=== PATIENT | female | born 1950 | race Caucasian/White ===

== ENCOUNTER → 2017-03-29 | Outpatient (CLI) | payer MEDICARE ==
--- NOTE | 2017-03-29 16:53 | US ---
EXAMINATION TYPE: US carotid duplex BILAT DATE OF EXAM: 03/29/2017 4:25 PM COMPARISON: NONE CLINICAL HISTORY: R42 Dizziness and giddiness. Patient states feeling foggy EXAM MEASUREMENTS: RIGHT: Peak Systolic Velocity (PSV) cm/sec ----- Right CCA: 85.3 ----- Right ICA: 72.4 ----- Right ECA: 120.5 ICA/CCA ratio: 0.8 RIGHT: End Diastole cm/sec ----- Right CCA: 22.6 ----- Right ICA: 16.4 ----- Right ECA: 22.0 LEFT: Peak Systolic Velocity (PSV) cm/sec ----- Left CCA: 77.7 ----- Left ICA: 64.2 ----- Left ECA: 110.8 ICA/CCA ratio: 0.8 LEFT: End Diastole cm/sec ----- Left CCA: 22.7 ----- Left ICA: 18.8 ----- Left ECA: 15.0 VERTEBRALS (direction of flow): Right Vertebral: Antegrade Left Vertebral: Antegrade No elevated velocities, plaque or significant stenosis seen. No wall thickening visualized. IMPRESSION: No hemodynamically significant stenosis of either carotid system.
== END | disposition home or self-care (01) ==
LOC: RADUSWWP 15:52
PROVIDERS: ATTEND Family Medicine
DX: R42 Dizziness and giddiness (principal)
CPT/HCPCS: 93880

== ENCOUNTER → 2017-06-14 | Outpatient (CLI) | payer MEDICARE ==
--- NOTE | 2017-06-17 12:54 | MM ---
Reason for exam: screening (asymptomatic). Last mammogram was performed 1 year and 2 months ago. Physical Findings: A clinical breast exam by your physician is recommended on an annual basis and results should be correlated with mammographic findings. MG 3D Screening Mammo W/Cad Bilateral CC and MLO view(s) were taken. Prior study comparison: April 16, 2016, bilateral MG 3d screening mammo w/cad. September 14, 2014, mammogram, performed at [place]. October 29, 2012, mammogram, performed at [place]. There are scattered fibroglandular densities. Finding: There are typically benign vascular calcifications in both breasts. There is no discrete abnormality. ASSESSMENT: Benign, BI-RAD 2 RECOMMENDATION: Routine screening mammogram of both breasts in 1 year.
== END | disposition home or self-care (01) ==
LOC: RADMAMWWP 10:53
PROVIDERS: ATTEND Family Medicine
DX: Z12.31 Encounter for screening mammogram for malignant neoplasm of breast (principal)
CPT/HCPCS: 77063; G0202

== ENCOUNTER → 2018-07-23 | Outpatient (CLI) | payer MEDICARE ==
--- NOTE | 2018-07-24 14:50 | MM ---
Reason for exam: screening (asymptomatic). Last mammogram was performed 1 year and 1 month ago. History: Family history of breast cancer in daughter at age 49. Physical Findings: A clinical breast exam by your physician is recommended on an annual basis and results should be correlated with mammographic findings. MG 3D Screening Mammo W/Cad Bilateral CC and MLO view(s) were taken. Prior study comparison: June 14, 2017, bilateral MG 3d screening mammo w/cad. April 16, 2016, bilateral MG 3d screening mammo w/cad. There are scattered fibroglandular densities. No suspicious calcifications are seen. There is no discrete abnormality. No significant changes when compared with prior studies. ASSESSMENT: Negative, BI-RAD 1 RECOMMENDATION: Routine screening mammogram of both breasts in 1 year.
== END | disposition home or self-care (01) ==
LOC: RADMAMWWP 13:00
PROVIDERS: ATTEND Family Medicine
DX: Z12.31 Encounter for screening mammogram for malignant neoplasm of breast (principal)
CPT/HCPCS: 77063; 77067

== ENCOUNTER → 2018-12-26 | Outpatient (CLI) | payer MEDICARE, OTHER ==
--- NOTE | 2018-12-26 16:56 | US ---
EXAMINATION TYPE: US thyroid st tissue head/neck DATE OF EXAM: 12/26/2018 COMPARISON: 04/02/2016 CLINICAL HISTORY: 68-year-old female E04.1 THYROID NODULE. TECHNIQUE: Multiple sonographic images of the thyroid gland are obtained. FINDINGS: GLAND SIZE: Right Lobe: surgically absent Left Lobe: 4.0 x 1.0 x 2.7 cm Overall Parenchyma: heterogeneous Isthmus Thickness: 0.5 cm NODULES RIGHT: # of nodules measured on right: 0 LEFT: # of nodules measured on left: 0 ISTHMUS: # of nodules measured in the isthmus: 0 Bilateral neck scanned, no evidence of lymphadenopathy. IMPRESSION: Status post right thyroidectomy. The left lobe is heterogeneous but no discrete nodule is seen.
== END ==
LOC: RADUSWWP 15:38
PROVIDERS: ATTEND Family Medicine
DX: E89.0 Postprocedural hypothyroidism (principal); Z90.89 Acquired absence of other organs; Z98.890 Other specified postprocedural states
CPT/HCPCS: 76536

== ENCOUNTER → 2019-06-18 | Outpatient (CLI) | payer MEDICARE, OTHER ==
[2019-06-18 10:54] LABS: Basophils % (A) 1 %; Eosinophils # (A) 0.1 k/uL (0-0.7); Eosinophils % (A) 2 %; HCT 46.1 % (34.0-46.0); HGB 14.1 gm/dL (11.4-16.0); Lymphocytes # (A) 1.4 k/uL (1.0-4.8); Lymphocytes % (A) 31 %; MCH 26.8 pg (25.0-35.0); MCHC 30.7 g/dL (31.0-37.0); MCV 87.3 fL (80.0-100.0); Mean Platelet Volume 7.1; Monocytes # (A) 0.3 k/uL (0-1.0); Monocytes % (A) 6 %; Neutrophils # (A) 2.7 k/uL (1.3-7.7); Neutrophils % (A) 59 %; Platelet Count 162 k/uL (150-450); RBC 5.28 m/uL (3.80-5.40); RDW 14.1 % (11.5-15.5); WBC 4.6 k/uL (3.8-10.6)
[2019-06-18 13:36] LABS: Erythrocyte Sedimentation Rate 2 mm/hr (0-20)
[2019-06-18 16:34] LABS: C Reactive Protein <0.4 mg/dL (0.0-0.8); Cholesterol 173 mg/dL (0-200); Glucose 149 mg/dL (70-110)
== END | disposition home or self-care (01) ==
LOC: LABWHC1 10:06
PROVIDERS: ATTEND Ophthalmology
DX: E11.9 Type 2 diabetes mellitus without complications (principal); H49.12 Fourth [trochlear] nerve palsy, left eye
CPT/HCPCS: 36415; 80061; 82947; 83036; 84439; 84443; 84481; 85025; 85652; 86140

== ENCOUNTER → 2019-06-25 | Outpatient (CLI) | payer MEDICARE, OTHER ==
--- NOTE | 2019-06-25 12:36 | XR ---
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 FINDINGS: There is no focal air space opacity, pleural effusion, or pneumothorax seen. The cardiac silhouette size is within normal limits. Bilateral shoulder arthroplasties are present. There is thor acic spondylosis. The osseous structures are intact. IMPRESSION: No acute cardiopulmonary process.
== END | disposition home or self-care (01) ==
LOC: RADXRMAIN 09:36
PROVIDERS: ATTEND Nurse Practitioner Adult Health
DX: R76.11 Nonspecific reaction to tuberculin skin test without active tuberculosis (principal)
CPT/HCPCS: 71046

== ENCOUNTER → 2019-06-27 | Outpatient (CLI) | payer MEDICARE, OTHER ==
--- NOTE | 2019-06-28 00:10 | MR ---
EXAMINATION TYPE: MR brain wo/w con DATE OF EXAM: 06/27/2019 COMPARISON: NONE HISTORY: Fourth nerve palsy, left with double vision and dizziness, history of Diabetes TECHNIQUE: Multiplanar, multisequence images of the brain and brainstem is performed without and with IV contras t, utilizing 10 mL intravenous Gadavist . FINDINGS: Diffusion weighted images demonstrate no evidence of a recent infarct or other diffusion ab normality. There is no worrisome extra-axial fluid collection. There is diffuse ventricular and sulc al prominence. Occasional focus of T2 hyperintensity scattered throughout the white matter bilaterall y. A proximally 5-10 scattered lesions are felt present. Midline structures demonstrate normal morphology. The craniocervical junction appears within normal limits. Post contrast images demonstrate no abnormal enhancement. The dural venous sinuses appear pa tent. The visualized sinuses are clear and the globes are intact. IMPRESSION: Mild generalized cerebral atrophy and chronic small vessel ischemic change. No recent inf arct or suspicious enhancement noted.
== END | disposition home or self-care (01) ==
LOC: RADMRIMAIN 14:05
PROVIDERS: ATTEND Ophthalmology
DX: I67.82 Cerebral ischemia (principal); G31.9 Degenerative disease of nervous system, unspecified; E11.9 Type 2 diabetes mellitus without complications
CPT/HCPCS: 70553; A9585

== ENCOUNTER → 2019-07-14 | Outpatient (CLI) | payer MEDICARE, OTHER ==
--- NOTE | 2019-07-14 16:03 | US ---
EXAMINATION TYPE: US transvaginal DATE OF EXAM: 07/14/2019 COMPARISON: NONE CLINICAL HISTORY: R10.31 rt lower quadrant pain. Intermittent right pelvic pain x couple years, gravi da 3, para 1, history of D&C and partial hysterectomy TECHNIQUE: Transvaginal exam only per ordering physician. Date of LMP: 1979 EXAM MEASUREMENTS: Uterus: surgically absent Endometrial Stripe: surgically absent Right Ovary: not seen Left Ovary: not seen 1. Uterus: surgically absent 2. Endometrium: surgically absent 3. Right Ovary: not seen 4. Left Ovary: not seen 5. Bilateral Adnexa: wnl 6. Posterior cul-de-sac: wnl IMPRESSION: No suspicious pelvic mass or fluid collection seen on images saved.
== END | disposition home or self-care (01) ==
LOC: RADUSWWP 14:46
PROVIDERS: ATTEND Family Medicine
DX: R10.31 Right lower quadrant pain (principal)
CPT/HCPCS: 76830

== ENCOUNTER → 2019-08-05 | Outpatient (CLI) | payer MEDICARE, OTHER ==
--- NOTE | 2019-08-06 10:14 | MM ---
Reason for exam: screening (asymptomatic). Last mammogram was performed 1 year ago. History: Family history of breast cancer in daughter at age 49. Physical Findings: A clinical breast exam by your physician is recommended on an annual basis and results should be correlated with mammographic findings. MG 3D Screening Mammo W/Cad Bilateral CC and MLO view(s) were taken. Prior study comparison: July 23, 2018, bilateral MG 3d screening mammo w/cad. June 14, 2017, bilateral MG 3d screening mammo w/cad. There are scattered fibroglandular densities. There are benign appearing vascular calcifications bilaterally. There is chronic nodularity in the left breast. There is no discrete abnormality. ASSESSMENT: Benign, BI-RAD 2 RECOMMENDATION: Routine screening mammogram of both breasts in 1 year.
== END | disposition home or self-care (01) ==
LOC: RADMAMWWP 13:25
PROVIDERS: ATTEND Family Medicine
DX: Z12.31 Encounter for screening mammogram for malignant neoplasm of breast (principal)
CPT/HCPCS: 77063; 77067

== ENCOUNTER → 2019-09-10 | Outpatient (CLI) | payer MEDICARE, OTHER ==
--- NOTE | 2019-09-10 13:34 | MR ---
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 FINDINGS: Diffusion weighted images demonstrate no evidence of a recent infarct or other diffusion ab normality. There is no extra-axial fluid collection. As seen on the prior there is moderate burden n onspecific white matter change demonstrated as T2/FLAIR hyperintense foci scattered within the perive ntricular and subcortical white matter. The ventricular system and cisternal spaces are symmetricall y prominent compatible with age-related volume loss. The brain volume is age appropriate. Midline structures demonstrate normal morphology. The craniocervical junction appears within normal limits. Post contrast images demonstrate no abnormal enhancement. The dural venous sinuses appear pa tent. Mild mucosal thickening is seen in the ethmoid sinuses. The remaining visualized sinuses are cl ear. There is a normal variant origin of the right posterior cerebral artery incidentally noted. John iber of the basilar artery is extremely diminutive. No left-sided posterior to indicating artery is s een. [place] is incomplete. No mass effect or infarct is seen of the midbrain or on the supr asellar cistern. The orbits are symmetric and maintain a normal rounded morphology. There is abnormal enhancement of the right optic nerve focally. 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 Cerebral aqueduct i s patent. IMPRESSION: 1. Abnormal enhancement of the right optic nerve, right-sided optic neuritis. No mass effect or infar ction of the midbrain or suprasellar cistern in this patient with left 4th nerve palsy. 2. No acute infarct, midline shift or mass effect. 3. 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 3. Moderate burden nonspecific white matter change, most commonly on the basis of chronic microangiop athy. Redemonstration of mild generalized age-related cerebral atrophy.
== END ==
LOC: RADMRIMAIN 11:55
PROVIDERS: ATTEND Ophthalmology
DX: H46.9 Unspecified optic neuritis (principal); R90.89 Other abnormal findings on diagnostic imaging of central nervous system
CPT/HCPCS: 70553; A9585

== ENCOUNTER → 2020-09-29 | Outpatient (CLI) | payer MEDICARE, OTHER ==
--- NOTE | 2020-09-30 14:50 | MM ---
Reason for exam: screening (asymptomatic). Last mammogram was performed 1 year and 2 months ago. History: Family history of breast cancer in daughter at age 49. Physical Findings: A clinical breast exam by your physician is recommended on an annual basis and results should be correlated with mammographic findings. MG 3D Screening Mammo W/Cad Bilateral CC and MLO view(s) were taken. CV view(s) were taken of the right breast. Prior study comparison: August 05, 2019, bilateral MG 3d screening mammo w/cad. July 23, 2018, bilateral MG 3d screening mammo w/cad. There are scattered fibroglandular densities. No significant changes when compared with prior studies. ASSESSMENT: Benign, BI-RAD 2 RECOMMENDATION: Routine screening mammogram of both breasts in 1 year.
== END | disposition home or self-care (01) ==
LOC: RADMAMWWP 10:58
PROVIDERS: ATTEND Nurse Practitioner Adult Health
DX: Z12.31 Encounter for screening mammogram for malignant neoplasm of breast (principal)
CPT/HCPCS: 77063; 77067

== ENCOUNTER 2020-11-23 06:48 | Day surgery (SDC) | payer MEDICARE, OTHER ==
[2020-11-17 09:28] VITALS: BMI 38.4
[2020-11-23 07:25] VITALS: RESP 16; TEMP 97.5
[2020-11-23] MEDS: LACTATED RINGERS 1,000 ML IV SCH ×2 (07:25→07:30)
[2020-11-23] MEDS ORDERED: PROPOFOL 10 MG/ML 20 ML VIAL IV ONE (07:36)
[2020-11-23 07:37] LABS: Glucose,Whole Blood 210 mg/dL (75-99)
--- NOTE | 2020-11-23 07:59 | P.PCN ---
Date of Procedure: 11/23/20 Procedure(s) Performed: BRIEF HISTORY: Patient is a 70-year-old pleasant white female scheduled for an elective colonoscopy as a part of evaluation of prior history of colon polyps. Her last colonoscopy was 5 years ago. PROCEDURE PERFORMED: Colonoscopy. PREOPERATIVE DIAGNOSIS: History of colon polyps. IV sedation per Anesthesia. PROCEDURE: After informed consent was obtained, the patient, was brought into the endoscopy unit. IV sedation was administered by Anesthesia under continuous monitoring. Digital rectal examination was normal. Initially the Olympus CF-160 flexible video colonoscope was then inserted in the rectum, gradually advanced into the cecum without any difficulty. Careful examination was performed as the scope was gradually being withdrawn. Ileocecal valve and the appendiceal orifice were visualized and appeared normal. Prep was fair.. Mucosa of the cecum, ascending colon, transverse colon, descending colon, sigmoid colon, and rectum appeared normal. Moderate to severe diverticulosis seen. Retroflexion was performed in the rectum and no lesions were seen. The patient tolerated the procedure well. IMPRESSION: Normal-appearing colon from rectum to cecum with no evidence of colorectal neoplasia Moderate sigmoid diverticulosis . RECOMMENDATIONS: Findings of this examination were discussed with the patient and her family. She was advised to have a repeat screening colonoscopy in 5 years from now because of the prior history of colon polyps..
[2020-11-23 08:09] LABS: Glucose,Whole Blood 162 mg/dL (75-99)
[2020-11-23 08:29] VITALS: BP 128/66; PULSE 60
== END 2020-11-23 08:43 | disposition home or self-care (01) ==
LOC: ORWHC2ENDO 06:48
PROVIDERS: ATTEND Internal Medicine Gastroenterology
DX: Z12.11 Encounter for screening for malignant neoplasm of colon (principal); K57.30 Diverticulosis of large intestine without perforation or abscess without bleeding; Z86.010 Personal history of colon polyps; E78.5 Hyperlipidemia, unspecified; E11.9 Type 2 diabetes mellitus without complications; H53.2 Diplopia; M19.90 Unspecified osteoarthritis, unspecified site; M06.9 Rheumatoid arthritis, unspecified; K21.9 Gastro-esophageal reflux disease without esophagitis; Z98.890 Other specified postprocedural states; E89.0 Postprocedural hypothyroidism; Z79.84 Long term (current) use of oral hypoglycemic drugs; Z79.890 Hormone replacement therapy; Z79.899 Other long term (current) drug therapy; Z88.5 Allergy status to narcotic agent; Z88.8 Allergy status to other drugs, medicaments and biological substances; Z91.040 Latex allergy status
CPT/HCPCS: J2704; G0105; 45378

== ENCOUNTER → 2022-04-19 | Outpatient (CLI) | payer MEDICARE, OTHER ==
--- NOTE | 2022-04-20 14:55 | MM ---
Reason for Exam: Screening (asymptomatic). Last mammogram was performed 1 year(s) and 6 month(s) ago. Patient History: Menarche at age 10. First Full-Term at age 19. Hysterectomy at age 35. Postmenopausal. Patient has history of breast feeding. Daughter had breast cancer, age 49. Risk Values: Audra 5 year model risk: 3.6%. NCI Lifetime model risk: 9.6%. Film Views: Bilateral CC views were taken. Bilateral MLO views were taken. Prior Study Comparison: 07/23/2018 Bilateral Screening Mammogram, [facility]. 08/05/2019 Bilateral Screening Mammogram, [facility]. 09/29/2020 Bilateral Screening Mammogram, [facility]. Tissue Density: There are scattered fibroglandular densities. Findings: Analyzed By CAD. There are benign-appearing round and vascular calcifications bilaterally redemonstrated. Benign-appearing bilateral axillary lymph nodes are again seen. There is no suspicious group of microcalcifications or new suspicious mass in either breast. Overall Assessment: Benign, BI-RAD 2 Management: Screening Mammogram of both breasts in 1 year. A clinical breast exam by your physician is recommended on an annual basis and results should be correlated with mammographic findings. Electronically signed and approved by: Anthony Patel M.D.
== END | disposition home or self-care (01) ==
LOC: RADMAMWWP 18:19
PROVIDERS: ATTEND Family Medicine
DX: Z12.31 Encounter for screening mammogram for malignant neoplasm of breast (principal)
CPT/HCPCS: 77063; 77067

== ENCOUNTER → 2022-11-02 | Day surgery (SDC) | payer MEDICARE ==
[2022-10-31 11:36] VITALS: BMI 37.2
[~2022-11-02] MED LIST: ACETAMINOPHEN TAB 500 MG TAB ONE; ACETAMINOPHEN TAB 500 MG TAB PO ONE; DEXAMETHASONE SOD PHOSPHATE 4 MG/ML 1 ML VIAL IV ONE; KETAMINE 10 MG/ML 20 ML VIAL ONE; LACTATED RINGERS 1,000 ML IV SCH; LIDOCAINE 1% (10MG/ML) FOR IV START INTRADERMA PRN; LIDOCAINE 2% INJ 20 MG/ML (2 ML VIAL) ONE; MIDAZOLAM 2 MG/2 ML VIAL IVP ONE; MIDAZOLAM 2 MG/2 ML VIAL ONE; ONDANSETRON 4 MG/2 ML VIAL IVP ONE; PROPOFOL 10 MG/ML 20 ML VIAL IV ONE; ROPIVACAINE 5 MG/ML 30 ML VIAL ONE; SODIUM CHLORIDE 0.9% (PF) 10 ML VIAL ONE; SUCCINYLCHOLINE CHLORIDE 200 MG/10 ML VIAL IV ONE; diphenhydrAMINE 50 MG/ML 1 ML VIAL ONE; fentaNYL (PF) 50 MCG/1 ML VIAL IVP ONE; fentaNYL (PF) 50 MCG/ML 2 ML AMP IV PRN; fentaNYL (PF) 50 MCG/ML 2 ML AMP ONE; hydrALAZINE HCL 20 MG/ML 1 ML VIAL IVP ONE; traMADol 50 MG TAB ONE; traMADol 50 MG TAB PO ONE
[2022-11-02 11:06] VITALS: TEMP 97.4
[2022-11-02 11:15] LABS: Glucose,Whole Blood 127 mg/dL (70-110)
--- NOTE | 2022-11-02 13:20 | P.ANPRN ---
Procedure Note - Anesthesia - Nerve Block Performed Left Adductor Canal Time Out Performed: Yes (11:50) Date of Procedure: 11/02/22 Procedure Start Time: 11:50 Procedure Stop Time: 11:56 Location of Patient: PreOp Indication: Acute Post-Operative Pain, Requested by Surgeon (Dr ledezma) Sedation Type: Sedate with meaningful contact maintained Preparation: Sterile Prep Position: Supine Catheter: None Needle Types: Pajunk Needle Gauge: 21 Ultrasound used to visualize needle placement: Yes Ultrasound used to observe medication spread: Yes Injectate: 0.5% Ropivacaine (see comment for volume) (15cc) Blood Aspirated: No Pain Paresthesia on Injection Noted: No Resistance on Injection: Normal Image Stored and Saved: Yes Events: Uneventful and Well Tolerated
--- NOTE | 2022-11-02 13:21 | P.ANPRN ---
Procedure Note - Anesthesia - Nerve Block Performed Left Popliteal Time Out Performed: Yes Date of Procedure: 11/02/22 Procedure Start Time: 11:57 Procedure Stop Time: 12:02 Location of Patient: PreOp Indication: Acute Post-Operative Pain, Requested by Surgeon (Dr Rahman) Sedation Type: Sedate with meaningful contact maintained Preparation: Sterile Prep Position: Right Lateral Catheter: None Needle Types: Pajunk Needle Gauge: 21 Ultrasound used to visualize needle placement: Yes Ultrasound used to observe medication spread: Yes Injectate: 0.5% Ropivacaine (see comment for volume) (15cc +5cc PF Normal saline) Blood Aspirated: No Pain Paresthesia on Injection Noted: No Resistance on Injection: Normal Image Stored and Saved: Yes Events: Uneventful and Well Tolerated
[2022-11-02 16:03] VITALS: RESP 16
--- NOTE | 2022-11-02 16:04 | XR ---
Intraoperative/procedural fluoroscopic services were provided for left ankle arthrodesis. Postsurgica l changes with fixation chaparrita and transverse screws involving the distal femur, talus, and calcaneus. I nterval resection of the distal fibula. Hardware appears intact with appropriate alignment. Total flu oroscopy time is 2.25 minutes with a total of 7 submitted images to PACS. Please see the operative no te for further details.
[2022-11-02 17:07] LABS: Glucose,Whole Blood 148 mg/dL (70-110)
[2022-11-02 18:17] VITALS: BP 154/79; PULSE 92
--- NOTE | 2022-11-07 15:55 | OP ---
OPERATIVE REPORT PREOPERATIVE DIAGNOSES: 1. Primary osteoarthritis of left foot and ankle. 2. Acquired deformity of left foot and ankle. POSTOPERATIVE DIAGNOSES: 1. Primary osteoarthritis of left foot and ankle. 2. Acquired deformity of left foot and ankle. PROCEDURE PERFORMED: Tibiotalocalcaneal arthrodesis, left leg. ANESTHESIA: General with preoperative nerve block. HEMOSTASIS: Left thigh tourniquet at 250 mmHg. ESTIMATED BLOOD LOSS: Minimal. MATERIALS: One Galt tibiotalocalcaneal arthrodesis nail. INJECTABLES: None. SPECIMENS: None. COMPLICATIONS: None. DESCRIPTION OF PROCEDURE: Prior to the patient being brought to the operative room, Anesthesia administered nerve block on the left lower extremity. Then, the patient was brought into the operative room and placed on the table in supine position. Time-out was taken to confirm correct patient identifiers, correct laterality of surgery, and correct procedure. Once all staff in the room were in agreement with the time-out, the patient was induced and placed under general anesthesia. A well-padded tourniquet was placed on the left thigh and a bump underneath the left hip to internally rotate the left leg. The left leg was then prepped and draped in the usual manner. The left leg was exsanguinated, and the tourniquet was inflated to 250 mmHg. Attention was directed over the lateral aspect of the ankle, where a linear incision was made directly over the fibula. It was deepened down to the subcutaneous tissue careful to identify, avoid, and retract any neurovascular structures and cauterize any bleeding vessels. Blunt dissection was carried down to the level of the fibula. A sagittal saw was used to create osteotomy of the fibula proximal to the ankle joint with a lateral bevel. Then, the soft tissue was incised anteriorly and posteriorly to free the fibula, and then the fibula was taken from the surgical field total. Both the ankle and subtalar joints were visualized. A distractor was placed at the ankle joint first, and then utilizing a rotary bur, the articular cartilage and subchondral bone were thoroughly debrided down to bleeding medullary bone. The same process was used on the articular surface of the posterior facet of the subtalar joint. Once that was completed, a wire and drill were used to aggressively fenestrate the conjoining surfaces of both the ankle as well as the subtalar joints, and then the wound was thoroughly irrigated with antibiotic saline. Next, planning for the nail placement was done. A guidewire was placed in the plantar surface of the calcaneus just lateral to the midline, and then under direct fluoroscopic visualization, it was aligned so that it would go centrally through the subtalar joint as well as enter the tibia in the central medullary canal both in the AP and lateral views. Once the wire was in place, the reamer over-drill was then done through the calcaneus and talus to the level of the ankle joint. The guidewire was then removed, and then the ball-tipped wire was then inserted deep into the medullary canal of the tibia, and then sequential reamers were used up to the 11 mm size until chatter was noted in the tibia itself. Once that was completed, the area was thoroughly irrigated with antibiotic saline. Augment was then mixed with bone graft material, and that was packed between the conjoining surfaces of the ankle and the subtalar joints. The [employer] arthrodesis nail was then placed in the jig and then inserted into the plantar surface of the heel into the drill hole and into the tibia. Then, it was impacted to proper depth. A guidewire was used to secure the position of the nail, and then the first screw placed was the lateral talar screw through the nail. Once that was completed, the jig was rotated to place the proximal tibial screws. The drill guides were placed through the jig and aligned against the skin over the medial aspect of the tibia. Small stab incisions were made in the skin and then bluntly dissected down to bone so that the drill guides could be placed directly against the bone. The drill holes were made through the tibia from medial to lateral through the nail. The proximal screw was placed through the dynamic hole, whereas the proximal screw was placed through the single hole. Once both screws were positioned, internal and external compressions were performed on the jig to compress the arthrodesis sites, and then the lateral screw was placed to lock the nail in place, and then the posterior- to-anterior screw through the calcaneus was placed. Direct fluoroscopic visualization indicated all screws were through the nail and in proper alignment. There was good compression at the arthrodesis site. The nail was properly aligned, and the ankle was also at 90 degrees to the leg and slightly posteriorly displaced. Once that was all completed, all wounds were thoroughly irrigated with antibiotic saline. Deep closure was done with 0 Vicryl. Subcutaneous closure was done with 4-0 Monocryl. Skin closure was done with blade. Arthrex JumpStart dressings were placed over all the incisions, and a bulky dry dressing was applied to the left foot, ankle, and leg. The tourniquet was released. Capillary refill returned to all digits of the left foot. Then, a well- padded, well-molded posterior mold/sugar-tong splint was placed, and once it was dried, the patient was reversed from general anesthesia and taken to Recovery with vital signs stable. MMODL / IJN: [id number] /
--- NOTE | 2022-11-08 13:13 | P.OP ---
Date of Procedure: 11/02/22 Preoperative Diagnosis: 1. Primary osteoarthritis left foot and ankle 2. Acquired Deformity of left foot and ankle Postoperative Diagnosis: 1. Same 2. Same Procedure(s) Performed: Left tibiotalocalcaneal arthrodesis Implants: [place] tibiotalocalcaneal arthrodesis intramedullary nail and associated locking screws [employer] Anesthesia: [place] Surgeon: Antonio Rahman Estimated Blood Loss (ml): 30 Pathology: none sent Condition: stable Disposition: PACU
== END | disposition home or self-care (01) ==
LOC: OR 10:32
PROVIDERS: ATTEND Podiatrist
DX: M19.072 Primary osteoarthritis, left ankle and foot (principal); M21.962 Unspecified acquired deformity of left lower leg; G89.18 Other acute postprocedural pain; E78.5 Hyperlipidemia, unspecified; M19.90 Unspecified osteoarthritis, unspecified site; E10.9 Type 1 diabetes mellitus without complications; E03.9 Hypothyroidism, unspecified; Z88.8 Allergy status to other drugs, medicaments and biological substances; Z88.5 Allergy status to narcotic agent; Z91.040 Latex allergy status; Z98.890 Other specified postprocedural states; Z83.3 Family history of diabetes mellitus; Z82.49 Family history of ischemic heart disease and other diseases of the circulatory system
CPT/HCPCS: 64447; 64445; 76942; 73600; 27870; 28725; C1713 ×2; J2250; J0330; J0360; J1200; J1100; J0690; J2405; J3010 ×2; J2795; J2704; J2001

== ENCOUNTER → 2023-05-13 | Outpatient (CLI) | payer MEDICARE ==
--- NOTE | 2023-05-13 16:04 | US ---
EXAMINATION TYPE: US thyroid st tissue head/neck DATE OF EXAM: 05/13/2023 COMPARISON: CLINICAL INDICATION: Female, 73 years old with history of E041 NONTOXIC SINGLE THYROID NODULE; Patien t states having right thyroid removed. Patient states taking thyroid meds. GLAND SIZE: Right Lobe: Surgically absent cm Left Lobe: 3.7 x 1.5 x 1.1 cm Overall Parenchyma: heterogenous Isthmus Thickness: 0.2 cm NODULES LEFT: # of nodules measured on left: 1 1. 0.6 X 0.6 x 0.3 cm, upper lateral, solid or almost completely solid, hypoechoic nodule, which is wider than tall, with smooth margins, without echogenic foci. Prior size: No prior ISTHMUS: # of nodules measured in the isthmus: 0 Bilateral neck scanned, no evidence of lymphadenopathy. IMPRESSION: Subcentimeter left thyroid nodule. Follow-up advised.
--- NOTE | 2023-05-14 09:08 | MM ---
Reason for Exam: Screening (asymptomatic). Last mammogram was performed 1 year(s) and 1 month(s) ago. Patient History: Menarche at age 10. First Full-Term at age 19. Hysterectomy at age 35. Postmenopausal. Patient has history of breast feeding. Daughter had breast cancer, age 49. Risk Values: Audra 5 year model risk: 3.6%. NCI Lifetime model risk: 8.7%. Prior Study Comparison: 08/05/2019 Bilateral Screening Mammogram, [facility]. 09/29/2020 Bilateral Screening Mammogram, [facility]. 04/19/2022 Bilateral MG 3D screening mammo w/cad, [facility]. Tissue Density: There are scattered fibroglandular densities. Findings: Analyzed By CAD. Benign bilateral vascular calcifications. Chronic nodularity central upper outer quadrant left breast. There is no suspicious group of microcalcifications or new suspicious mass in either breast. Overall Assessment: Benign, BI-RAD 2 Management: Screening Mammogram of both breasts in 1 year. See note below in regards to patient's increased 5 year Audra score. Patient should continue monthly self-breast exams. A clinical breast exam by your physician is recommended on an annual basis. This exam should not preclude additional follow-up of suspicious palpable abnormalities. Note on Audra scores and lifetime risk: 1. A Audra score greater than 3% is considered moderate risk. If this is the case, consider specialist referral to assess eligibility for a risk reducing agent. 2. If overall lifetime risk for the development of breast cancer is 20% or higher, the patient may qualify for future screening with alternating mammogram and breast MRI. Electronically signed and approved by: Marco Haywood M.D. Radiologist
== END | disposition home or self-care (01) ==
LOC: RADUSWWP 14:54
PROVIDERS: ATTEND Family Medicine
DX: Z12.31 Encounter for screening mammogram for malignant neoplasm of breast (principal); E04.1 Nontoxic single thyroid nodule; Z78.0 Asymptomatic menopausal state; Z80.3 Family history of malignant neoplasm of breast
CPT/HCPCS: 76536; 77063; 77067

== ENCOUNTER → 2024-05-14 | Outpatient (CLI) | payer MEDICARE ==
--- NOTE | 2024-05-18 12:49 | MM ---
Reason for Exam: Screening (asymptomatic). Last screening mammogram was performed 12 month(s) ago. Patient History: Menarche at age 10. First Full-Term at age 19. Hysterectomy at age 35. Postmenopausal. Patient has history of breast feeding. Niece had breast cancer. Daughter had breast cancer, age 49. Risk Values: Audra 5 year model risk: 3.6%. NCI Lifetime model risk: 8.2%. Prior Study Comparison: 09/29/2020 Bilateral Screening Mammogram, [facility]. 04/19/2022 Bilateral MG 3D screening mammo w/cad, [facility]. 05/13/2023 Bilateral MG 3D screening mammo w/cad, [facility]. Tissue Density: There are scattered areas of fibroglandular density. Findings: Analyzed By CAD. Right breast: There is no suspicious group of microcalcifications or new suspicious mass. Left breast: There is no suspicious group of microcalcifications or new suspicious mass. Overall Assessment: Negative, BI-RAD 1 Management: Screening Mammogram of both breasts in [address] [facility] will attempt to contact patient to return for supplemental views and ultrasound if indicated. Patient should continue monthly self-breast exams. A clinical breast exam by your physician is recommended on an annual basis. This exam should not preclude additional follow-up of suspicious palpable abnormalities. Note on Audra scores and lifetime risk: 1. A Audra score greater than 3% is considered moderate risk. If this is the case, consider specialist referral to assess eligibility for a risk reducing agent. 2. If overall lifetime risk for the development of breast cancer is 20% or higher, the patient may qualify for future screening with alternating mammogram and breast MRI. Electronically signed and approved by: Dennis Peng DO
== END | disposition home or self-care (01) ==
LOC: RADMAMWWP 13:33
PROVIDERS: ATTEND Family Medicine
DX: Z12.31 Encounter for screening mammogram for malignant neoplasm of breast (principal); Z78.0 Asymptomatic menopausal state; Z80.3 Family history of malignant neoplasm of breast
CPT/HCPCS: 77063; 77067

== ENCOUNTER → 2025-03-26 | Outpatient (CLI) | payer MEDICARE ==
[2025-03-26 16:00] LABS: ALT 21 U/L (4-34); AST 25 U/L (14-36); African American GFR (CKD) >90 (>60 ml/min/1.73 sqM); Albumin 4.6 g/dL (3.5-5.0); Albumin/Globulin Ratio 1.5; Alkaline Phosphatase 66 U/L (38-126); Anion Gap 11 mmol/L; Blood Urea Nitrogen 16 mg/dL (7-17); Calcium 9.6 mg/dL (8.4-10.2); Carbon Dioxide 29 mmol/L (22-30); Chloride 101 mmol/L (98-107); Globulin 3.1 g/dL; Glucose 105 mg/dL (74-99); Non-African American GFR(CKD) 89 (>60 ml/min/1.73 sqM); Potassium 3.9 mmol/L (3.5-5.1); Sodium 141 mmol/L (137-145); Total Bilirubin 1.1 mg/dL (0.2-1.3); Total Protein 7.7 g/dL (6.3-8.2)
--- NOTE | 2025-03-26 16:39 | CT ---
EXAMINATION TYPE: CT abdomen pelvis w con CT DLP: 1407 mGycm, Automated exposure control for dose reduction was used. DATE OF EXAM: 03/26/2025 4:28 PM COMPARISON: CT chest 01/13/2025, transvaginal ultrasound 07/14/2019 CLINICAL INDICATION:Female, 74 years old with history of R10.31 RIGHT LOWER QUADRANT PAIN; RLQ pain x 1 week. TECHNIQUE: Standard CT of the abdomen and pelvis following the administration of 100 cc of Isovue 3 00 IV contrast material. Coronal and sagittal reformats were performed. FINDINGS: LOWER CHEST: Stable right lower lung pleural-based 4 mm pulmonary nodule (series 4, image 8). ABDOMEN LIVER: Unremarkable GALLBLADDER AND BILE DUCTS: Unremarkable. PANCREAS: Unremarkable. SPLEEN: Unremarkable. ADRENAL GLANDS: Unremarkable. KIDNEYS AND URETERS: No evidence of hydronephrosis or renal calculus. The kidneys enhance symmetrical ly. Left renal sinus cyst. No focal parenchymal. Contrast demonstrated within both collecting systems and proximal ureters on the delayed phase. PELVIS BLADDER: Limited evaluation due to streak artifact from hip prosthesis. No gross abnormality. REPRODUCTIVE: The uterus is surgically absent. ABDOMEN & PELVIS STOMACH AND BOWEL: Stomach and duodenum are unremarkable. Distal colonic diverticulosis without evide nce for acute diverticulitis. No focal bowel wall thickening or surrounding inflammatory changes. The appendix is not definitively identified. No significant inflammatory changes within the right lower quadrant. No evidence of bowel obstruction. PERITONEUM: No evidence of pneumoperitoneum or free fluid. VASCULATURE: Mild atherosclerotic calcifications are present throughout the abdominal aorta and its b ranches. No evidence of aortic aneurysm. MUSCULOSKELETAL: No acute osseous abnormalities. 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 Minimal levocurvature of the lumbar spine. 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 Grade 1 retrolisthesis L2 on L3. Grade 1 anterolisthesis of L3 on L4 and L4 on L5. Multile marivel facet arthropathy lower lumbar spine. LYMPH NODES: No evidence for lymphadenopathy. SOFT TISSUE/ABDOMINAL WALL: Small fat filled umbilical hernia. IMPRESSION: 1. No CT evidence for acute abdominal/pelvic process. 2. Distal colonic diverticulosis without evidence for acute diverticulitis. 3. Stable pleural-based right lower lung 4 mm pulmonary nodule. According to Fleischner criteria, in a low-risk patient no follow-up is recommended. In a high-risk patient consider additional CT chest i n 12 months. [facility], , 03/26/2025 4:37 PM
== END | disposition home or self-care (01) ==
LOC: RADCTMAIN 15:20
PROVIDERS: ATTEND Family Medicine
DX: K57.30 Diverticulosis of large intestine without perforation or abscess without bleeding (principal); R91.1 Solitary pulmonary nodule
CPT/HCPCS: 80053; 74177; 36415; Q9967

== ENCOUNTER → 2025-05-17 | Outpatient (CLI) | payer MEDICARE ==
--- NOTE | 2025-05-18 07:41 | MM ---
Reason for Exam: Screening (asymptomatic). Last screening mammogram was performed 12 month(s) ago. Patient History: Menarche at age 10. First Full-Term at age 19. Hysterectomy at age 35. Postmenopausal. Patient has history of breast feeding. Niece had breast cancer. Daughter had breast cancer, age 49. Risk Values: Audra 5 year model risk: 3.6%. NCI Lifetime model risk: 7.7%. Prior Study Comparison: 04/19/2022 Bilateral MG 3D screening mammo w/cad, [facility]. 05/13/2023 Bilateral MG 3D screening mammo w/cad, [facility]. 05/14/2024 Bilateral MG 3D screening mammo w/cad, [facility]. Tissue Density: There are scattered areas of fibroglandular density. Findings: Analyzed By CAD. Right breast: There is no suspicious group of microcalcifications or new suspicious mass. Left breast: There is no suspicious group of microcalcifications or new suspicious mass. Overall Assessment: Negative, BI-RAD 1 Management: Screening Mammogram of both breasts in [address] [facility] will attempt to contact patient to return for supplemental views and ultrasound if indicated. Patient should continue monthly self-breast exams. A clinical breast exam by your physician is recommended on an annual basis. This exam should not preclude additional follow-up of suspicious palpable abnormalities. Note on Audra scores and lifetime risk: 1. A Audra score greater than 3% is considered moderate risk. If this is the case, consider specialist referral to assess eligibility for a risk reducing agent. 2. If overall lifetime risk for the development of breast cancer is 20% or higher, the patient may qualify for future screening with alternating mammogram and breast MRI. [facility], , 05/18/2025 7:38 AM. Electronically signed and approved by: Dennis Peng DO
== END | disposition home or self-care (01) ==
LOC: RADMAMWWP 16:26
PROVIDERS: ATTEND Family Medicine
DX: Z12.31 Encounter for screening mammogram for malignant neoplasm of breast (principal); R92.323 Mammographic fibroglandular density, bilateral breasts; Z78.0 Asymptomatic menopausal state; Z80.3 Family history of malignant neoplasm of breast
CPT/HCPCS: 77063; 77067